=== PATIENT | male | born 1995 | race Caucasian/White ===

== ENCOUNTER 2020-07-06 19:21 | Inpatient (IN) | payer OTHER ==
[2020-07-06 20:03] VITALS: BMI 25.2
[2020-07-06] MEDS ORDERED: MAG HYDROX/AL HYDROX/SIMETH 30 ML UNIT-DOSE CUP PO PRN (21:11)
[2020-07-06] MEDS ORDERED: MENTHOL/PHENOL 1 EACH UD MM PRN (21:11)
[2020-07-06] MEDS ORDERED: ONDANSETRON *ODT* 4 MG TABLET SL PRN (21:11)
[2020-07-06] MEDS ORDERED: MAGNESIUM CITRATE 300 ML BOTTLE PO PRN (21:11)
[2020-07-06] MEDS ORDERED: BISMUTH SUBSALICYLATE 524 MG/30 ML UD PO PRN (21:11)
[2020-07-06] MEDS ORDERED: ACETAMINOPHEN 325 MG TABLET (FP) PO PRN (21:11)
[2020-07-06] MEDS ORDERED: IBUPROFEN 400 MG TABLET (FP) PO PRN (21:11)
[2020-07-06] MEDS ORDERED: NICOTINE POLACRILEX 2 MG GUM BUC PRN (21:11)
[2020-07-06] MEDS ORDERED: METHADONE HCL 10 MG TABLET (FOR DETOX USE ONLY) PO ONE (21:11)
[2020-07-06] MEDS ORDERED: MAGNESIUM HYDROX 2400MG/30ML ORAL SUSPENSION 30 ML CUP PO PRN (21:11)
[2020-07-06] MEDS ORDERED: METHADONE HCL 10 MG TABLET (FOR DETOX USE ONLY) ONE (22:16)
[2020-07-06] MEDS ORDERED: diazePAM 5 MG TABLET ONE (22:16)
[2020-07-06] MEDS: diazePAM 5 MG TABLET PO SCH (22:28)
[2020-07-06] MEDS: THIAMINE HCL 100 MG TABLET (FP) PO SCH (23:58)
[2020-07-06] MEDS: cloNIDine HCL 0.1 MG TABLET PO PRN (23:58)
[2020-07-07] MEDS: MELATONIN 5 MG TABLETS PO SCH ×2 (00:03→22:43)
[2020-07-07] MEDS: diazePAM 5 MG TABLET PO SCH ×4 (06:09→22:06)
[2020-07-07] MEDS ORDERED: METHADONE HCL 5 MG TABLET (FOR DETOX USE ONLY) ONE (08:47)
[2020-07-07] MEDS ORDERED: METHADONE HCL 10 MG TABLET (FOR DETOX USE ONLY) ONE (08:48)
[2020-07-07] MEDS ORDERED: METHADONE (DETOX) 20 MG, METHADONE (DETOX) 5 MG PO ONE (10:00)
[2020-07-07] MEDS: NICOTINE 21 MG/24 HOURS TOPICAL PATCH TD SCH (10:18)
[2020-07-07] MEDS: PRENATAL VITAMINS W/ FOLIC ACID TABLET (FP) PO SCH (11:34)
[2020-07-07] MEDS ORDERED: FLU VACCINE (FLULAVAL) PF 60 MCG/0.5 ML SYRINGE 2020-2021 IM ONE (12:00)
[2020-07-07] MEDS: THIAMINE HCL 100 MG TABLET (FP) PO SCH (22:06)
[2020-07-07] MEDS: QUEtiapine FUMARATE 100 MG TABLET (FP) PO SCH (22:06)
[2020-07-08] MEDS: diazePAM 5 MG TABLET PO SCH ×3 (06:17→22:08)
[2020-07-08] MEDS: METHOCARBAMOL 500 MG TABLET PO PRN ×3 (06:18→22:11)
[2020-07-08] MEDS ORDERED: METHADONE HCL 10 MG TABLET (FOR DETOX USE ONLY) PO ONE (10:00)
[2020-07-08] MEDS: diazePAM 5 MG TABLET PO PRN ×2 (10:39→17:48)
[2020-07-08] MEDS: PRENATAL VITAMINS W/ FOLIC ACID TABLET (FP) PO SCH (10:40)
[2020-07-08] MEDS: NICOTINE 21 MG/24 HOURS TOPICAL PATCH TD SCH (10:43)
[2020-07-08] MEDS: ACETAMINOPHEN 325 MG TABLET (FP) PO PRN ×2 (12:12→22:12)
[2020-07-08] MEDS: cloNIDine HCL 0.1 MG TABLET PO PRN (17:48)
[2020-07-08] MEDS: QUEtiapine FUMARATE 100 MG TABLET (FP) PO SCH (22:08)
[2020-07-08] MEDS: THIAMINE HCL 100 MG TABLET (FP) PO SCH (22:08)
[2020-07-08] MEDS: MELATONIN 5 MG TABLETS PO SCH (22:09)
[2020-07-09] MEDS ORDERED: diazePAM 5 MG TABLET PO SCH (06:00)
[2020-07-09 09:59] VITALS: BP 105/68; PULSE 60; TEMP 96.8
[2020-07-09] MEDS ORDERED: METHADONE (DETOX) 10 MG, METHADONE (DETOX) 5 MG PO ONE (10:00)
[2020-07-10] MEDS ORDERED: diazePAM 5 MG TABLET PO ONE (06:00)
[2020-07-10] MEDS ORDERED: METHADONE HCL 10 MG TABLET (FOR DETOX USE ONLY) PO ONE (10:00)
[2020-07-11] MEDS ORDERED: METHADONE HCL 5 MG TABLET (FOR DETOX USE ONLY) PO ONE (06:00)
== END 2020-07-09 11:18 | disposition home or self-care (01) | DRG 773 ==
LOC: YASAS 19:21 → Y6N 21:06
PROVIDERS: ADMIT Allergy & Immunology; ATTEND Allergy & Immunology
PROC: HZ2ZZZZ Detoxification Services for Substance Abuse Treatment (ICD-10-PCS; principal; 2020-07-06)
DX: F11.23 Opioid dependence with withdrawal (principal); F13.230 Sedative, hypnotic or anxiolytic dependence with withdrawal, uncomplicated; F14.20 Cocaine dependence, uncomplicated; F16.10 Hallucinogen abuse, uncomplicated; F12.20 Cannabis dependence, uncomplicated; F17.210 Nicotine dependence, cigarettes, uncomplicated; F19.282 Other psychoactive substance dependence with psychoactive substance-induced sleep disorder; F19.24 Other psychoactive substance dependence with psychoactive substance-induced mood disorder; F31.9 Bipolar disorder, unspecified; F41.9 Anxiety disorder, unspecified; B18.2 Chronic viral hepatitis C; R56.9 Unspecified convulsions; Z62.810 Personal history of physical and sexual abuse in childhood; Z56.0 Unemployment, unspecified; Z59.0 Homelessness
CPT/HCPCS: 93005; 93010; C9803; J0735; U0003